=== PATIENT | male | born 1965 | race Two or more races ===

== ENCOUNTER 2025-01-21 14:28 | Outpatient (AMB) | payer MEDICAID, SELFPAY ==
--- NOTE | 2025-01-21 14:36 | ACNOTE_ITS ---
Vital Signs 01/21/25 14:37 Height 1.68 m Height Method Stated Weight 62.142 kg Weight Measurement Method Standing Scale BMI 22.0 BP 114/70 Blood Pressure Source Automatic Cuff Blood Pressure Location Left Upper Arm Position Sitting Respiration 16 Pulse 66 Pulse Source Monitor Temp 98.2 F Temp Source Temporal Artery Scan Pulse Oximetry (%) 98 Oxygen Delivery Method Room Air Allergies/Meds Allergies & Medications Allergies No Known Allergies Allergy (Verified 01/21/25 14:38) Medication Reconciliation blood-glucose meter (Accu-Chek Guide Glucose Meter) #1 ea 01/25/23 [Rx Confirmed 01/21/25] hydrocortisone 1 % topical cream (Cortisone (hydrocortisone)) 1 applic topical TID PRN rash #28.4 grams 05/09/23 [Rx Confirmed 01/21/25] atorvastatin 20 mg tablet 20 mg PO QHS #30 tabs 01/21/25 [Rx] benzonatate 100 mg capsule 100 mg PO BID PRN cough #30 caps 01/21/25 [Rx] lancets 17 gauge #100 ea 01/21/25 [Rx] losartan 25 mg tablet 25 mg PO QDAY #30 tabs 01/21/25 [Rx] metformin 500 mg tablet 500 mg PO BIDWMEAL #60 tabs 01/21/25 [Rx] pantoprazole 40 mg tablet,delayed release (Protonix) 40 mg PO QDAY #30 tabs 01/21/25 [Rx] MA Intake Visit Data Collection New Patient or Established: Established Patient (seen at [facility] within 3 years) Seen by Clinical Staff ONLY (RN/MA): No Pain Present Currently: No Pain scale:: 0 Pain Scale Used: Foss-Gardner/Numerical Wind Energy Technician Required: Yes PCP or OBGYN visit in last 3 months: No Hx Now: No Do You Feel Safe at Home: Yes Authorities Contacted: N/A Smoking Status Smoking Status: Never smoker Immunization / Flu Flu Vaccine in the Last 12 Months: No Flu Vaccine Exclusion Criteria: No Exclusion Criteria Past Medical History Past Medical History NEUROLOGIC: Negative Neurological Disorders or Seizures CARDIAC: Negative Cardiac Disorders, Atrial Fibrillation or Congestive Heart Failure RESPIRATORY: Negative Chronic Obstructive Pulmonary Disease (COPD) GASTROINTESTINAL: Negative Gastrointestinal Disorders or Hepatitis GENITOURINARY: Negative Renal Disease ENDOCRINE: Negative Diabetes Mellitus Type 1 or Diabetes Mellitus Type 2 OTHER HISTORY: Negative Blood Transfusions, Anesthesia Reactions, MRSA, VRSA, Vancomycin-Resistant Enterococci, Chicken Pox, Clostridium Difficile or Cancer Family History FAMILY HISTORY: Negative Family Psychiatric Problems, Family Respiratory Disorders, Family Cardiac Disorders, Family Gastrointestinal Problems or Family Cancer Surgical History SURGICAL: Negative Cardiac Surgery, Endocrine Surgery, Ear Surgery, Abdominal Surgery, Joint Replacement or Neurologic Surgery Social History SMOKING STATUS: Smoking status: Never smoker SECOND HAND EXPOSURE: second hand exposure: No ALCOHOL: Alcohol Intake: Never HOUSING: Housing: House LIVES WITH: Lives With: Alone Patient Portal Questionaires PHQ-9 PHQ-2 Over the last 2 weeks, how often have you been bothered by any of the following problems? 1. Little interest or pleasure in doing things: not at all Social History Living Situation History Housing: House Tobacco History Smoking Status: Never smoker Second Hand Smoke Exposure: No Alcohol History Alcohol Intake: Never Domestic Abuse History Do You Feel Safe at Home: Yes Review of Systems Report any current symptoms Only answer those that you have currently: Past Medical History Past Medical History Have you ever been diagnosed with any of the following: Neurological Problems Seizures: No Cardiology Problems Atrial Fibrillation: No Congestive Heart Failure: No Respiratory Problems Chronic Obstructive Pulmonary Disease (COPD): No Stomache/Intestinal Problems Hepatitis: No Genital/Urinary Problems Renal Disease: No Endocrine Problems Diabetes Mellitus Type 1: No Diabetes Mellitus Type 2: No Other Problems Blood Transfusions: No Anesthesia Reactions: No MRSA: No VRSA: No Vancomycin-Resistant Enterococci: No Chicken Pox: No Clostridium Difficile: No Cancer: No History of Present Illness HPI Narrative 59-year-old male with past medical history of DM2, esophageal stricture s/p dilation, H. pylori, and GERD who was seen in the [facility] today with complaints of persistent cough after recent upper respiratory tract infection. Patient has not been seen in our clinic since April of last year. He stated he has been feeling well without any complaints except for his recent upper respiratory tract infection which he felt unwell with chills, sweats, cough, and fevers. He mentioned that he ate that he does not know if he had any sick contacts during work. He mentioned that he went to a clinic and got some antibiotics which helped improve his symptoms, but did not improve his cough. He denied any shortness of breath, weight loss, blood in the sputum, or night sweats. Patient also mentioned that he has been having some urination issues in which he has some hesitancy as well as increase urge to urinate, but denies any dysuria. Patient stated that his sugars have been in the 120s in the morning, and that he recently ran out of his metformin around 1 month ago. Patient was also noticed to have significant hearing loss in both ears and he was also noticed to have a systolic ejection murmur. Patient's last labs were also done last year therefore we will order new labs for patient. Given this we will order labs for the patient as well as an echocardiogram to assess systolic ejection murmur as well as a referral to an garnett feeder. Patient was also advi sed to keep the log of his sugars in the morning every day until he comes back to the [facility] next week. Review of Systems Review of Systems Narrative Review of Systems: Constitutional: Denies sweats, Denies weight loss/gain, Denies fever, Admits chills. HEENT: Admits hearing loss, Denies ear pain, Denies postnasal drip, Denies double vision, Denies blurry vision. Respiratory: Denies shortness of breath, Admits cough, Denies wheezing. Cardiovascular: Denies chest pain, Denies palpitations, Denies sudden loss of consciousness. GI: Denies blood in stool, Denies constipation, Denies abdominal pain, Denies difficulty swallowing, Denies nausea or vomit. : Denies urinary incontinence, Denies pain while urinating, Admits increased urinary hesitancy and urgency. MSK: Denies joint pain, Denies joint swelling, Denies numbness. Skin: Denies rash, Denies itching, Denies easy bruising. Neuro: Denies headaches, Denies dizziness, Denies seizures. Objective/Exam General General Appearance: alert, in no apparent distress and cooperative Head Head exam: atraumatic, normocephalic and normal inspection Eye Eye exam: Present normal appearance, PERRL and EOMI ENT ENT exam: Present normal exam, normal oropharynx, mucous membranes moist and other (impaired hearing JEOVANNY ) Neck Neck exam: Present normal inspection and full ROM Card Cardiovascular exam: Present regular rate, normal rhythm and systolic murmur Abdominal Abdominal exam: Present soft and normal bowel sounds Extremities Extremities exam: Present normal inspection and full ROM Neuro Neurological exam: Present alert, oriented X3 and CN II-XII intact Psych Psychiatric exam: Present normal affect and normal mood Assessment & Plan Diagnosis / Problem List (1) Diabetes mellitus, type II: Status: Acute Qualifiers: Diabetes mellitus group home insulin use: without mechanical engineering technologist use Diabetes mellitus complication status: with hyperglycemia Qualified Code(s): E11.65 - Type 2 diabetes mellitus with hyperglycemia Assessment & Plan: Patient's last A1c was 6.3% on 01/2024 Patient states that her blood sugars have been in the 120s Patient ran out of metformin around 1 month ago Plan: Refilled patient's metformin Start patient on losartan low-dose As patient to get a log of his blood sugars in the morning for next visit Order A1c, microalbumin/creatinine ratio, TSH, and lipid panel (2) Upper respiratory infection: Status: Acute Qualifiers: URI type: unspecified URI Qualified Code(s): J06.9 - Acute upper respiratory infection, unspecified Assessment & Plan: Patient stated that he had a cough along with fevers, chills, and sweats around 3 weeks ago and he still has a persistent cough He stated he took some antibiotics prescribed to him by another clinic Plan: Will get CBC Will order Tesayaanon Nicole (3) Other difficulties with micturition: Status: Acute Assessment & Plan: Patient has been having some hesitancy as well as increased urinary urgency Plan: Will order PSA before starting any treatment for now (4) Murmur, cardiac: Status: Acute Assessment & Plan: Patient was noticed to have a systolic ejection murmur Patient has no echocardiogram on file Plan: Ordered echo for possible aortic stenosis (5) Hearing loss: Status: Acute Qualifiers: Hearing loss type: unspecified Laterality: bilateral Qualified Code(s): H91.93 - Unspecified hearing loss, bilateral Assessment & Plan: Patient has been having impaired hearing in bilateral ears Plan: Will refer patient to garnett feeder Orders: Orders CA echo doppler complete 1 Month R01.1 - Cardiac murmur, unspecified Referrals Audiology H91.90 - Unspecified hearing loss, unspecified ear Office Procedures [facility] Level of Care Nursing/Assessment Patient Status: Established Patient Nursing Assessment/Reassessment: Medication Reconciliation, Update PMH in EMR and Vital Signs Coordination of Care: Complex Care and Chronic Disease 1-5, Consent,records obtained, informed consent, Lab and Imaging orders and Staff clarify orders Established Patient Charge Established Patient Point Assignment: 85 Established Patient Point Charge: Level 3 (80-115)
[2025-01-21 14:37] VITALS: BP 114/70; PULSE 66; RESP 16; TEMP 36.8; O2SAT 98; BMI 22.0
== END 2025-01-21 15:12 | disposition home or self-care (01) ==
LOC: HODAHC 14:28
PROVIDERS: Supervising Provider Internal Medicine
DX: J06.9 Acute upper respiratory infection, unspecified (principal); E11.65 Type 2 diabetes mellitus with hyperglycemia; H91.93 Unspecified hearing loss, bilateral; R39.198 Other difficulties with micturition; R01.1 Cardiac murmur, unspecified; Z79.84 Long term (current) use of oral hypoglycemic drugs
CPT/HCPCS: 99213; G0463

== ENCOUNTER 2025-01-28 13:53 | Outpatient (AMB) | payer MEDICAID, SELFPAY ==
--- NOTE | 2025-01-28 14:49 | PD.RESCLINIC ---
Vital Signs 01/28/25 14:50 Height 1.68 m Height Method Stated Weight 62.142 kg Weight Measurement Method Standing Scale BMI 22.0 BP 106/69 Blood Pressure Source Automatic Cuff Blood Pressure Location Left Upper Arm Position Sitting Respiration 16 Pulse 65 Pulse Source Monitor Temp 97.3 F Temp Source Temporal Artery Scan Pulse Oximetry (%) 98 Oxygen Delivery Method Room Air Allergies/Meds Allergies & Medications Allergies No Known Allergies Allergy (Verified 01/29/25 11:11) Medication Reconciliation blood-glucose meter (Accu-Chek Guide Glucose Meter) #1 ea 01/25/23 [Rx Confirmed 01/29/25] hydrocortisone 1 % topical cream (Cortisone (hydrocortisone)) 1 applic topical TID PRN rash #28.4 grams 05/09/23 [Rx Confirmed 01/29/25] atorvastatin 20 mg tablet 20 mg PO QHS #30 tabs 01/21/25 [Rx Confirmed 01/29/25] benzonatate 100 mg capsule 100 mg PO BID PRN cough #30 caps 01/21/25 [Rx Confirmed 01/29/25] lancets 17 gauge #100 ea 01/21/25 [Rx Confirmed 01/29/25] losartan 25 mg tablet 25 mg PO QDAY #30 tabs 01/21/25 [Rx Confirmed 01/29/25] metformin 500 mg tablet 500 mg PO BIDWMEAL #60 tabs 01/21/25 [Rx Confirmed 01/29/25] pantoprazole 40 mg tablet,delayed release (Protonix) 40 mg PO QDAY #30 tabs 01/21/25 [Rx Confirmed 01/29/25] blood sugar diagnostic (Accu-Chek Guide test strips) #50 ea 01/28/25 [Rx Confirmed 01/29/25] blood-glucose meter (Accu-Chek Guide Glucose Meter) #1 ea 01/28/25 [Rx Confirmed 01/29/25] tamsulosin 0.4 mg capsule (Flomax) 0.4 mg PO QDAY 1 month #30 caps 01/28/25 [Rx Confirmed 01/29/25] MA Intake Visit Data Collection New Patient or Established: Established Patient (seen at [facility] within 3 years) Seen by Clinical Staff ONLY (RN/MA): No Pain Present Currently: No Pain scale:: 0 Pain Scale Used: Soni/Numerical Mechanical Supervisor Required: Yes PCP or OBGYN visit in last 3 months: Yes Hx Now: No Do You Feel Safe at Home: Yes Authorities Contacted: N/A Smoking Status Smoking Status: Never smoker Immunization / Flu Flu Vaccine in the Last 12 Months: No Flu Vaccine Exclusion Criteria: No Exclusion Criteria Past Medical History Past Medical History NEUROLOGIC: Negative Neurological Disorders or Seizures CARDIAC: Negative Cardiac Disorders, Atrial Fibrillation or Congestive Heart Failure RESPIRATORY: Negative Chronic Obstructive Pulmonary Disease (COPD) GASTROINTESTINAL: Negative Gastrointestinal Disorders or Hepatitis GENITOURINARY: Negative Renal Disease ENDOCRINE: Negative Diabetes Mellitus Type 1 or Diabetes Mellitus Type 2 OTHER HISTORY: Negative Blood Transfusions, Anesthesia Reactions, MRSA, VRSA, Vancomycin-Resistant Enterococci, Chicken Pox, Clostridium Difficile or Cancer Family History FAMILY HISTORY: Negative Family Psychiatric Problems, Family Respiratory Disorders, Family Cardiac Disorders, Family Gastrointestinal Problems or Family Cancer Surgical History SURGICAL: Negative Cardiac Surgery, Endocrine Surgery, Ear Surgery, Abdominal Surgery, Joint Replacement or Neurologic Surgery Social History SMOKING STATUS: Smoking status: Never smoker SECOND HAND EXPOSURE: second hand exposure: No ALCOHOL: Alcohol Intake: Never HOUSING: Housing: House LIVES WITH: Lives With: Alone Patient Portal Questionaires PHQ-9 PHQ-2 Over the last 2 weeks, how often have you been bothered by any of the following problems? 1. Little interest or pleasure in doing things: not at all Social History Living Situation History Housing: House Tobacco History Smoking Status: Never smoker Second Hand Smoke Exposure: No Alcohol History Alcohol Intake: Never Domestic Abuse History Do You Feel Safe at Home: Yes Review of Systems Report any current symptoms Only answer those that you have currently: Past Medical History Past Medical History Have you ever been diagnosed with any of the following: Neurological Problems Seizures: No Cardiology Problems Atrial Fibrillation: No Congestive Heart Failure: No Respiratory Problems Chronic Obstructive Pulmonary Disease (COPD): No Stomache/Intestinal Problems Hepatitis: No Genital/Urinary Problems Renal Disease: No Endocrine Problems Diabetes Mellitus Type 1: No Diabetes Mellitus Type 2: No Other Problems Blood Transfusions: No Anesthesia Reactions: No MRSA: No VRSA: No Vancomycin-Resistant Enterococci: No Chicken Pox: No Clostridium Difficile: No Cancer: No History of Present Illness HPI Narrative 59-year-old male with past medical history of DM2, esophageal stricture s/p dilation, H. pylori, and GERD who was seen in the [facility] today for follow-up on his persistent cough as well as lab results. Patient stated that he started using the medications that were prescribed which were Tessalon Perles and that his cough has significantly improved, but is still there sometimes. He also mentioned that his micturition issues have improved slightly, but still having some urgency during the night. He states that his glucose monitoring machine is malfunctioning therefore we will order a new one as well as some test strips. Will also start patient on Flomax. Still not seen the warehouse traffic supervisor or had his echo taken. Discussed the lab results with the patient. Review of Systems Review of Systems Narrative Review of Systems: Constitutional: Denies sweats, Denies weight loss/gain, Denies fever, Denies chills. HEENT: Admits hearing loss, Denies ear pain, Denies postnasal drip, Denies double vision, Denies blurry vision. Respiratory: Denies shortness of breath, Admits cough, Denies wheezing. Cardiovascular: Denies chest pain, Denies palpitations, Denies sudden loss of consciousness. GI: Denies blood in stool, Denies constipation, Denies abdominal pain, Denies difficulty swallowing, Denies nausea or vomit. : Denies urinary incontinence, Denies pain while urinating, Admits increased urinary urgency. MSK: Denies joint pain, Denies joint swelling, Denies numbness. Skin: Denies rash, Denies itching, Denies easy bruising. Neuro: Denies headaches, Denies dizziness, Denies seizures. Objective/Exam General General Appearance: alert, in no apparent distress and cooperative Head Head exam: atraumatic, normocephalic and normal inspection Eye Eye exam: Present normal appearance, PERRL and EOMI ENT ENT exam: Present normal exam, normal oropharynx, mucous membranes moist and other (impaired hearing JEOVANNY ) Neck Neck exam: Present normal inspection and full ROM Card Cardiovascular exam: Present regular rate, normal rhythm and systolic murmur Abdominal Abdominal exam: Present soft and normal bowel sounds Extremities Extremities exam: Present normal inspection and full ROM Neuro Neurological exam: Present alert, oriented X3 and CN II-XII intact Psych Psychiatric exam: Present normal affect and normal mood Assessment & Plan Diagnosis / Problem List (1) Diabetes mellitus, type II: Status: Acute Qualifiers: Diabetes mellitus complication status: with hyperglycemia Diabetes mellitus intermission coordinator insulin use: without skilled nursing use Qualified Code(s): E11.65 - Type 2 diabetes mellitus with hyperglycemia Assessment & Plan: Patient's last A1c was 6.3% on 01/2024 Blood sugar fasting was 113, no A1c was done by the lab, but estimated A1c was 5.5% with lab results. Plan: Continue metformin and losartan Ordered blood glucose meter and test strips Follow-up in 3 months with repeat A1c (2) Upper respiratory infection: Status: Acute Qualifiers: URI type: unspecified URI Qualified Code(s): J06.9 - Acute upper respiratory infection, unspecified Assessment & Plan: Patient had no leukocytosis upon CBC and states that his cough is improving with medications. Plan: Will continue to monitor (3) Other difficulties with micturition: Status: Acute Assessment & Plan: Patient has noticed some improvement in his hesitancy and urgency, but still experiencing some urgency PSA was within normal limits Plan: Started the patient on Flomax daily (4) Murmur, cardiac: Status: Acute Assessment & Plan: Patient was noticed to have a systolic ejection murmur Patient has no echocardiogram on file Plan: Still pending echo (5) Hearing loss: Status: Acute Qualifiers: Hearing loss type: unspecified Laterality: bilateral Qualified Code(s): H91.93 - Unspecified hearing loss, bilateral Assessment & Plan: Patient has been having impaired hearing in bilateral ears Plan: Still has not seen warehouse traffic supervisor Office Procedures [facility] Level of Care Nursing/Assessment Patient Status: Established Patient Nursing Assessment/Reassessment: Medication Reconciliation, Update PMH in EMR and Vital Signs Coordination of Care: Complex Care and Chronic Disease 1-5, Consent,records obtained, informed consent, Education Simp Pt/Fam, Results/Orders obtained and Staff clarify orders Established Patient Charge Established Patient Point Assignment: 90 Established Patient Point Charge: EP Level 3 (80-115)
[2025-01-28 14:50] VITALS: BP 106/69; PULSE 65; RESP 16; TEMP 36.3; O2SAT 98; BMI 22.0
== END 2025-01-28 14:55 | disposition home or self-care (01) ==
LOC: HODAHC 13:53
PROVIDERS: Supervising Provider Internal Medicine
DX: R05.9 Cough, unspecified (principal); R39.15 Urgency of urination; Z71.2 Person consulting for explanation of examination or test findings; E11.65 Type 2 diabetes mellitus with hyperglycemia; R01.1 Cardiac murmur, unspecified; H91.93 Unspecified hearing loss, bilateral
CPT/HCPCS: 99213; G0463

== ENCOUNTER 2025-04-15 14:07 | Outpatient (AMB) | payer MEDICAID, SELFPAY ==
[2025-04-15 14:20] VITALS: BP 121/65; PULSE 51; RESP 17; TEMP 36.6; O2SAT 98; BMI 21.9
--- NOTE | 2025-04-15 14:20 | PD.RESCLINIC ---
Vital Signs 04/15/25 14:20 Height 1.68 m Height Method Stated Weight 61.745 kg Weight Measurement Method Standing Scale BMI 21.9 BP 121/65 Blood Pressure Source Automatic Cuff Blood Pressure Location Right Upper Arm Position Sitting Respiration 17 Pulse 51 L Pulse Source Monitor Temp 97.8 F Temp Source Temporal Artery Scan Pulse Oximetry (%) 98 Oxygen Delivery Method Room Air Allergies/Meds Allergies & Medications Allergies No Known Allergies Allergy (Verified 04/15/25 14:22) Medication Reconciliation blood-glucose meter (Accu-Chek Guide Glucose Meter) #1 ea 01/25/23 [Rx Confirmed 04/15/25] hydrocortisone 1 % topical cream (Cortisone (hydrocortisone)) 1 applic topical TID PRN rash #28.4 grams 05/09/23 [Rx Confirmed 04/15/25] benzonatate 100 mg capsule 100 mg PO BID PRN cough #30 caps 01/21/25 [Rx Confirmed 04/15/25] lancets 17 gauge #100 ea 01/21/25 [Rx Confirmed 04/15/25] metformin 500 mg tablet 500 mg PO BIDWMEAL #60 tabs 01/21/25 [Rx Confirmed 04/15/25] pantoprazole 40 mg tablet,delayed release (Protonix) 40 mg PO QDAY #30 tabs 01/21/25 [Rx Confirmed 04/15/25] blood sugar diagnostic (Accu-Chek Guide test strips) #50 ea 01/28/25 [Rx Confirmed 04/15/25] blood-glucose meter (Accu-Chek Guide Glucose Meter) #1 ea 01/28/25 [Rx Confirmed 04/15/25] MA Intake Visit Data Collection New Patient or Established: Established Patient (seen at [facility] within 3 years) Seen by Clinical Staff ONLY (RN/MA): No Pain Present Currently: No Pain scale:: 0 Pain Scale Used: FossAshlee/[employer]ical [employer] Insurance Required: No PCP or OBGYN visit in last 3 months: Yes Date of Last Menstrual Period: 01/28/25 Do You Feel Safe at Home: Yes Authorities Contacted: N/A Smoking Status Smoking Status: Never smoker Immunization / Flu Flu Vaccine in the Last 12 Months: No Flu Vaccine Exclusion Criteria: Already Received Past Medical History Past Medical History NEUROLOGIC: Negative Neurological Disorders or Seizures CARDIAC: Negative Cardiac Disorders, Atrial Fibrillation or Congestive Heart Failure RESPIRATORY: Negative Chronic Obstructive Pulmonary Disease (COPD) GASTROINTESTINAL: Negative Gastrointestinal Disorders or Hepatitis GENITOURINARY: Negative Renal Disease ENDOCRINE: Negative Diabetes Mellitus Type 1 or Diabetes Mellitus Type 2 OTHER HISTORY: Negative Blood Transfusions, Anesthesia Reactions, MRSA, VRSA, Vancomycin-Resistant Enterococci, Chicken Pox, Clostridium Difficile or Cancer Family History FAMILY HISTORY: Negative Family Psychiatric Problems, Family Respiratory Disorders, Family Cardiac Disorders, Family Gastrointestinal Problems or Family Cancer Surgical History SURGICAL: Negative Cardiac Surgery, Endocrine Surgery, Ear Surgery, Abdominal Surgery, Joint Replacement or Neurologic Surgery Social History SMOKING STATUS: Smoking status: Never smoker SECOND HAND EXPOSURE: second hand exposure: No ALCOHOL: Alcohol Intake: Never HOUSING: Housing: House LIVES WITH: Lives With: Alone Patient Portal Questionaires PHQ-9 PHQ-2 Over the last 2 weeks, how often have you been bothered by any of the following problems? 1. Little interest or pleasure in doing things: not at all 2. Feeling down, depressed, or hopeless: not at all Total score: 0 PHQ-9 3. Trouble falling or staying asleep, or sleeping too much: Not at all 4. Feeling tired or having little energy: Not at all 5. Poor appetite or overeating: Not at all 6. Feeling bad about yourself - or that you are a failure or have let yourself or your family down: Not at all 7. Trouble concentrating on things, such as reading the newspaper or watching television: Not at all 8. Moving or speaking so slowly that other people could have noticed? - Or the opposite - being so fidgety or restless that you have been moving around a lot more than usual: not at all 9. Thoughts that you would be better off or of hurting yourself in some way: Not at all Total score: 0 If you checked off any problems, how difficult have these problems made it for you to do your work, take care of things at home, or get along with other people?: not difficult at all Source: Developed by Drs. Aden Webb, Yolanda Herrmann, Sloan Abbott and colleagues, with an educational sheeba from [employer]. Depression screen completed yes Social History Living Situation History Marital Status: Lives With: Family Housing: House Tobacco History Smoking Status: Never smoker Second Hand Smoke Exposure: No Alcohol History Alcohol Intake: Never Domestic Abuse History Do You Feel Safe at Home: Yes Review of Systems Report any current symptoms Only answer those that you have currently: Past Medical History Past Medical History Have you ever been diagnosed with any of the following: Neurological Problems Seizures: No Cardiology Problems Atrial Fibrillation: No Congestive Heart Failure: No Respiratory Problems Chronic Obstructive Pulmonary Disease (COPD): No Stomache/Intestinal Problems Hepatitis: No Genital/Urinary Problems Renal Disease: No Endocrine Problems Diabetes Mellitus Type 1: No Diabetes Mellitus Type 2: No Other Problems Blood Transfusions: No Anesthesia Reactions: No MRSA: No VRSA: No Vancomycin-Resistant Enterococci: No Chicken Pox: No Clostridium Difficile: No Cancer: No History of Present Illness HPI Narrative 59-year-old male with past medical history of DM2, esophageal stricture s/p dilation, H. pylori, and GERD who was seen in the [facility] today for 2 month follow-up. Patient states that he started taking his tamsulosin which caused him to have urine retention and that when he did not use it he could urinate without any issues. Patient also stated that his atorvastatin caused him to feel weakness in his legs and his losartan caused his lungs to feel funny. He states that he has been checking his sugars and have been under controlled, but did not get the A1c done which was ordered on previous visit. At this time patient's blood pressure have been under control therefore will stop his losartan and since his lipid were under control will also stop atorvastatin. Will monitor lipids and BP before starting a new regimen. Patient will also stop tamsulosin. Review of Systems Review of Systems Narrative Review of Systems: Constitutional: Denies sweats, Denies weight loss/gain, Denies fever, Denies chills. HEENT: denies hearing loss, Denies ear pain, Denies postnasal drip, Denies double vision, Denies blurry vision. Respiratory: Denies shortness of breath, denies cough, Denies wheezing. Cardiovascular: Denies chest pain, Denies palpitations, Denies sudden loss of consciousness. GI: Denies blood in stool, Denies constipation, Denies abdominal pain, Denies difficulty swallowing, Denies nausea or vomit. : Denies urinary incontinence, Denies pain while urinating, Admits increased urinary retention. MSK: Denies joint pain, Admits leg weakness, Denies joint swelling, Denies numbness. Skin: Denies rash, Denies itching, Denies easy bruising. Neuro: Denies headaches, Denies dizziness, Denies seizures. Objective/Exam General General Appearance: alert, in no apparent distress and cooperative Head Head exam: atraumatic, normocephalic and normal inspection Eye Eye exam: Present normal appearance, PERRL and EOMI ENT ENT exam: Present normal exam, normal oropharynx, mucous membranes moist and other (impaired hearing JEOVANNY ) Neck Neck exam: Present normal inspection and full ROM Card Cardiovascular exam: Present regular rate, normal rhythm and systolic murmur Abdominal Abdominal exam: Present soft and normal bowel sounds Extremities Extremities exam: Present normal inspection and full ROM Neuro Neurological exam: Present alert, oriented X3 and CN II-XII intact Psych Psychiatric exam: Present normal affect and normal mood Assessment & Plan Diagnosis / Problem List (1) Diabetes mellitus, type II: Status: Acute Qualifiers: Diabetes mellitus intermediate insulin use: without intermediate use Diabetes mellitus complication status: with hyperglycemia Qualified Code(s): E11.65 - Type 2 diabetes mellitus with hyperglycemia Assessment & Plan: Patient's last A1c was 6.3% on 01/2024 still no A1c States BG in the 80-115 Plan: Continue metformin Stop losartan as well as atorvastatin given side effects and patient's preference to stop it Follow-up in 3 months with repeat A1c (2) Other difficulties with micturition: Status: Acute Assessment & Plan: Patient has noticed some improvement in his hesitancy and urgency, but still experiencing some urgency PSA was within normal limits Plan: Stop flomax as patient states caused urine retention and prefers not to take it (3) Murmur, cardiac: Status: Acute Assessment & Plan: Patient was noticed to have a systolic ejection murmur Patient has no echocardiogram on file Plan: Still pending echo, has not scheduled appointment Additional Plan Stop losartan, flomax, losartan get A1c and F/U in 3 months Case disclosed with Attending Dr. Francheska Lee PGY1 Office Procedures [facility] Level of Care Nursing/Assessment Patient Status: Established Patient Nursing Assessment/Reassessment: Medication Reconciliation, Update PMH in EMR and Vital Signs Coordination of Care: Complex Care and Chronic Disease 1-5, Consent,records obtained, informed consent, Education Simp Pt/Fam, Results/Orders obtained and Staff clarify orders Established Patient Charge Established Patient Point Assignment: 90 Established Patient Point Charge: EP Level 3 (32-115)
== END 2025-04-15 15:05 | disposition home or self-care (01) ==
LOC: HODAHC 14:07
PROVIDERS: Supervising Provider Internal Medicine
DX: E11.65 Type 2 diabetes mellitus with hyperglycemia (principal); R33.9 Retention of urine, unspecified; R39.15 Urgency of urination; R01.1 Cardiac murmur, unspecified; Z79.84 Long term (current) use of oral hypoglycemic drugs
CPT/HCPCS: 99213; G0463

== ENCOUNTER 2025-06-13 13:57 | Outpatient (AMB) | payer MEDICAID, SELFPAY ==
[2025-06-13 14:48] VITALS: BP 114/71; PULSE 60; RESP 18; TEMP 36.4; O2SAT 97; BMI 21.2
--- NOTE | 2025-06-13 14:48 | ACNOTE_ITS ---
Vital Signs 06/13/25 14:48 Height 1.68 m Height Method Stated Weight 60.044 kg Weight Measurement Method Standing Scale BMI 21.2 BP 114/71 Blood Pressure Source Automatic Cuff Blood Pressure Location Right Upper Arm Position Sitting Respiration 18 Pulse 60 Pulse Source Monitor Temp 97.6 F Temp Source Temporal Artery Scan Pulse Oximetry (%) 97 Oxygen Delivery Method Room Air Allergies/Meds Allergies & Medications Allergies No Known Allergies Allergy (Verified 06/13/25 14:49) Medication Reconciliation blood-glucose meter (Accu-Chek Guide Glucose Meter) #1 ea 01/25/23 [Rx Confirmed 06/13/25] hydrocortisone 1 % topical cream (Cortisone (hydrocortisone)) 1 applic topical TID PRN rash #28.4 grams 05/09/23 [Rx Confirmed 06/13/25] benzonatate 100 mg capsule 100 mg PO BID PRN cough #30 caps 01/21/25 [Rx Confirmed 06/13/25] lancets 17 gauge #100 ea 01/21/25 [Rx Confirmed 06/13/25] pantoprazole 40 mg tablet,delayed release (Protonix) 40 mg PO QDAY #30 tabs 01/21/25 [Rx Confirmed 06/13/25] blood sugar diagnostic (Accu-Chek Guide test strips) #50 ea 01/28/25 [Rx Confirmed 06/13/25] blood-glucose meter (Accu-Chek Guide Glucose Meter) #1 ea 01/28/25 [Rx Confirmed 06/13/25] metformin 500 mg tablet 500 mg PO BIDWMEAL Pre-daibetes R73.03 #60 tabs 06/13/25 [Rx] MA Intake Visit Data Collection New Patient or Established: Established Patient (seen at [facility] within 3 years) Seen by Clinical Staff ONLY (RN/MA): No Pain Present Currently: No Pain scale:: 0 Pain Scale Used: FossRioGardner/Numerical Personal Care Service Provider Required: No PCP or OBGYN visit in last 3 months: No Do You Feel Safe at Home: Yes Authorities Contacted: N/A Smoking Status Smoking Status: Never smoker Immunization / Flu Flu Vaccine in the Last 12 Months: No Flu Vaccine Exclusion Criteria: No Exclusion Criteria Past Medical History Past Medical History NEUROLOGIC: Negative Neurological Disorders or Seizures CARDIAC: Negative Cardiac Disorders, Atrial Fibrillation or Congestive Heart Failure RESPIRATORY: Negative Chronic Obstructive Pulmonary Disease (COPD) GASTROINTESTINAL: Negative Gastrointestinal Disorders or Hepatitis GENITOURINARY: Negative Renal Disease ENDOCRINE: Negative Diabetes Mellitus Type 1 or Diabetes Mellitus Type 2 OTHER HISTORY: Negative Blood Transfusions, Anesthesia Reactions, MRSA, VRSA, Vancomycin-Resistant Enterococci, Chicken Pox, Clostridium Difficile or Cancer Family History FAMILY HISTORY: Negative Family Psychiatric Problems, Family Respiratory Disorders, Family Cardiac Disorders, Family Gastrointestinal Problems or Family Cancer Surgical History SURGICAL: Negative Cardiac Surgery, Endocrine Surgery, Ear Surgery, Abdominal Surgery, Joint Replacement or Neurologic Surgery Social History SMOKING STATUS: Smoking status: Never smoker SECOND HAND EXPOSURE: second hand exposure: No ALCOHOL: Alcohol Intake: Never HOUSING: Housing: House LIVES WITH: Lives With: Alone Patient Portal Questionaires PHQ-9 PHQ-2 Over the last 2 weeks, how often have you been bothered by any of the following problems? 1. Little interest or pleasure in doing things: not at all PHQ-9 8. Moving or speaking so slowly that other people could have noticed? - Or the opposite - being so fidgety or restless that you have been moving around a lot more than usual: not at all Source: Developed by Drs. Aden Webb, Yolanda Herrmann, Sloan Abbott and colleagues, with an educational sheeba from [employer]. Social History Living Situation History Lives With: Family Housing: House Tobacco History Smoking Status: Never smoker Second Hand Smoke Exposure: No Alcohol History Alcohol Intake: Never Domestic Abuse History Do You Feel Safe at Home: Yes Review of Systems Report any current symptoms Only answer those that you have currently: Past Medical History Past Medical History Have you ever been diagnosed with any of the following: Neurological Problems Seizures: No Cardiology Problems Atrial Fibrillation: No Congestive Heart Failure: No Respiratory Problems Chronic Obstructive Pulmonary Disease (COPD): No Stomache/Intestinal Problems Hepatitis: No Genital/Urinary Problems Renal Disease: No Endocrine Problems Diabetes Mellitus Type 1: No Diabetes Mellitus Type 2: No Other Problems Blood Transfusions: No Anesthesia Reactions: No MRSA: No VRSA: No Vancomycin-Resistant Enterococci: No Chicken Pox: No Clostridium Difficile: No Cancer: No History of Present Illness HPI Narrative Patient is a 59 year old male with a past medical history of diabetes Mellitus Type 2, non insulin depedent, history of GERD, history of esophageal stricture s/p dialtion, and history of H.pyloir. 06/13/2025: Patient is here for A1c follow up. Patient previously on Tamsulosin, which was discontinued on previous office visit as he stated it was causing urinary retention after starting medication. Atorvastatin discontinued as he complained of weakness with this medication. Losartan discontinued as he felt it was effecting his lungs. Patient continues to take his Metformin. Patient denied any side effects secondary to medication, such as diarrhea. Follow up A1c 6.0 % (04/15/2025). Patient advised to resume a statin as generalized weakness is not a common side effect and advised to switch over to Lisinopril as patient has diabetes and increased risk of CKD and CAD. Patient continues to refuse Review of Systems Review of Systems Narrative Review of Systems: General appearance: NO weight change, NO fatigue, NO weakness, NO fever, NO chills, NO night sweats, No cough Skin: NO rash, NO itching, NO sores, NO moles HEENT: NO Trauma, NO nausea, NO vomiting, NO visual changes, NO blurry vision, NO double vision, NO tinnitus, NO vertigo, NO ear discharge, NO rhinorrhea, NO stuffiness, NO sneezing, NO allergy, NO epistaxis. NO Hoarseness, NO sore throat, NO swollen neck. Cardiac: NO Palpitations, NO dyspnea on exertion, NO orthopnea, NO paroxysmal nocturnal dyspnea, NO edema Respiratory: NO Shortness of Breath, NO Wheezing, NO Cough, NO Sputum, NO hemoptysis GI:NO appetite, NO nausea, NO vomiting, NO dysphagia, NO changes in bowel frequency, NO stool color, NO diarrhea, NO constipation, NO hemetemesis, NO hemorrhoids, NO melena, NO hematechezia, NO abdominal pain, NO jaundice Renal: NO frequency, NO hesitancy, NO urgency, NO hematuria, NO nocturia, NO incontinence MSK: NO muscle weakness, NO gout, NO arthritis, NO muscle stiffness Neuro: NO headaches, NO tremors, NO weakness, NO paralysis, NO seizures, NO loss of consciousness, NO numbness. Hem: NO anemia, NO easy bruising/bleeding, NO petechiae, NO purpura Endo: NO heat/cold intolerance, NO excessive sweating, NO polyuria, NO polydipsia, NO polyphagia, NO thyroid problems, NO diabetes Pysch: NO mood, NO anxiety, NO depression Objective/Exam Narrative Physical exam: General Appearance: Alert and Orientated x3, well-nourished male who is sitting on exam room in acute distress Thorax/Lungs: Symmetrical with good expansion. Chest and back non-tender. Lungs resonant to percussion. Breath sounds vesicular without crackles, wheezes, or rhonchi Cardiovascular/Peripheral Vascular: No jugular venous distention noted. S1 and S2 heart sounds regular, no murmurs or extra heart sounds auscultated. No peripheral edema noted. Abdomen: Bowel sounds are active. No tenderness to deep or light palpation. Assessment & Plan Diagnosis / Problem List (1) Diabetes mellitus type 2, controlled, without complications: Status: Acute Assessment & Plan: Patient has a past medical history of diabetes mellitus type 2. A1c (04/15/2025) noted to have an A1c 6.0. Continue to take metformin 500 mg PO BID. Plan: Continue Metformin 500 mg PO BID (2) GERD (gastroesophageal reflux disease): Status: Acute Qualifiers: Esophagitis presence: with esophagitis Esophagitis bleeding: unspec ified whether hemorrhage Qualified Code(s): K21.00 - Gastro-esophageal reflux disease with esophagitis, without bleeding Assessment & Plan: Continue oral protonix 40 mg once daily. (3) Murmur, cardiac: Status: Acute Assessment & Plan: Patient was noticed to have a systolic ejection murmur Patient has no echocardiogram on file Plan: Still pending echo, has not scheduled appointment Plan - The patient's plan was discussed with attending Dr. Francheska Nam MD PGY2 Internal Medicine Office Procedures [facility] Level of Care Nursing/Assessment Patient Status: Established Patient Nursing Assessment/Reassessment: Medication Reconciliation, Update PMH in EMR and Vital Signs Coordination of Care: Complex Care and Chronic Disease 1-5, Consent,records obtained, informed consent, Education Simp Pt/Fam and Staff clarify orders Established Patient Charge Established Patient Point Assignment: 85 Established Patient Point Charge: EP Level 3 (80-115)
== END 2025-06-13 15:08 | disposition home or self-care (01) ==
LOC: HODAHC 13:57
PROVIDERS: Supervising Provider Internal Medicine
DX: E11.9 Type 2 diabetes mellitus without complications (principal); R01.1 Cardiac murmur, unspecified; K21.00 Gastro-esophageal reflux disease with esophagitis, without bleeding
CPT/HCPCS: 99213; G0463

== ENCOUNTER 2025-09-19 13:04 | Outpatient (AMB) | payer MEDICAID, SELFPAY ==
[2025-09-19 13:16] VITALS: BP 136/73; PULSE 63; RESP 16; TEMP 36.6; O2SAT 98; BMI 22.1
--- NOTE | 2025-09-19 13:16 | ACNOTE_ITS ---
Vital Signs 09/19/25 13:16 Height 1.68 m Height Method Stated Weight 62.312 kg Weight Measurement Method Standing Scale BMI 22.1 BP 136/73 H Blood Pressure Source Automatic Cuff Blood Pressure Location Right Upper Arm Position Sitting Respiration 16 Pulse 63 Pulse Source Monitor Temp 97.9 F Temp Source Temporal Artery Scan Pulse Oximetry (%) 98 Oxygen Delivery Method Room Air Allergies/Meds Allergies & Medications Allergies No Known Allergies Allergy (Verified 09/19/25 13:18) Medication Reconciliation hydrocortisone 1 % topical cream (Cortisone (hydrocortisone)) 1 applic topical T ID PRN rash #28.4 grams 05/09/23 [Rx Confirmed 09/19/25] lancets 17 gauge #100 ea 01/21/25 [Rx Confirmed 09/19/25] pantoprazole 40 mg tablet,delayed release (Protonix) 40 mg PO QDAY #30 tabs 01/21/25 [Rx Confirmed 09/19/25] metformin 500 mg tablet 500 mg PO BIDWMEAL Pre-daibetes R73.03 #60 tabs 06/13/25 [Rx Confirmed 09/19/25] benzonatate 100 mg capsule 100 mg PO BID PRN cough #30 caps 09/14/25 [Rx Confirmed 09/19/25] blood sugar diagnostic (Accu-Chek Guide test strips) #50 ea 09/14/25 [Rx Confirmed 09/19/25] blood-glucose meter (Accu-Chek Guide Glucose Meter) #1 ea 09/14/25 [Rx Confirmed 09/19/25] blood-glucose meter (Accu-Chek Guide Glucose Meter) #1 ea 09/14/25 [Rx Confirmed 09/19/25] finasteride 1 mg tablet 1 mg PO QDAY Benign Prostatic Hyperplasia 3 months #90 tabs 09/19/25 [Rx] lancets (Accu-Chek Softclix Lancets) #200 ea 09/19/25 [Rx] lidocaine 5 % topical patch 1 patch topical QDAY #15 ea 09/19/25 [Rx] losartan 25 mg tablet 25 mg PO QDAY Hypertesnion I10 1 month #30 tabs 09/19/25 [Rx] miscellaneous medical supply (Blood Pressure Cuff) #1 ea 09/19/25 [Rx] MT Intake Visit Data Collection New Patient or Established: Established Patient (seen at [facility] within 3 years) Seen by Clinical Staff ONLY (RN/MA): No Pain Present Currently: No Pain scale:: 0 Pain Scale Used: Foss-Gardner/Numerical PCP or OBGYN visit in last 3 months: Yes Do You Feel Safe at Home: Yes Authorities Contacted: N/A Smoking Status Smoking Status: Never smoker Immunization / Flu Flu Vaccine in the Last 12 Months: No Flu Vaccine Exclusion Criteria: Refused by Patient Past Medical History Past Medical History NEUROLOGIC: Negative Neurological Disorders or Seizures CARDIAC: Negative Cardiac Disorders, Atrial Fibrillation or Congestive Heart Failure RESPIRATORY: Negative Chronic Obstructive Pulmonary Disease (COPD) GASTROINTESTINAL: Negative Gastrointestinal Disorders or Hepatitis GENITOURINARY: Negative Renal Disease ENDOCRINE: Negative Diabetes Mellitus Type 1 or Diabetes Mellitus Type 2 OTHER HISTORY: Negative Blood Transfusions, Anesthesia Reactions, MRSA, VRSA, Vancomycin-Resistant Enterococci, Chicken Pox, Clostridium Difficile or Cancer Family History FAMILY HISTORY: Negative Family Psychiatric Problems, Family Respiratory Disorders, Family Cardiac Disorders, Family Gastrointestinal Problems or Family Cancer Surgical History SURGICAL: Negative Cardiac Surgery, Endocrine Surgery, Ear Surgery, Abdominal Surgery, Joint Replacement or Neurologic Surgery Social History SMOKING STATUS: Smoking status: Never smoker SECOND HAND EXPOSURE: second hand exposure: No ALCOHOL: Alcohol Intake: Never HOUSING: Housing: House LIVES WITH: Lives With: Alone Patient Portal Questionaires PHQ-9 PHQ-2 Over the last 2 weeks, how often have you been bothered by any of the following problems? 1. Little interest or pleasure in doing things: not at all PHQ-9 8. Moving or speaking so slowly that other people could have noticed? - Or the opposite - being so fidgety or restless that you have been moving around a lot more than usual: not at all Source: Developed by Drs. Aden Webb, Yolanda Herrmann, Sloan Abbott and colleagues, with an educational sheeba from [employer]. Social History Living Situation History Lives With: Family Housing: House Tobacco History Smoking Status: Never smoker Second Hand Smoke Exposure: No Alcohol History Alcohol Intake: Never Domestic Abuse History Do You Feel Safe at Home: Yes Review of Systems Report any current symptoms Only answer those that you have currently: Past Medical History Past Medical History Have you ever been diagnosed with any of the following: Neurological Problems Seizures: No Cardiology Problems Atrial Fibrillation: No Congestive Heart Failure: No Respiratory Problems Chronic Obstructive Pulmonary Disease (COPD): No Stomache/Intestinal Problems Hepatitis: No Genital/Urinary Problems Renal Disease: No Endocrine Problems Diabetes Mellitus Type 1: No Diabetes Mellitus Type 2: No Other Problems Blood Transfusions: No Anesthesia Reactions: No MRSA: No VRSA: No Vancomycin-Resistant Enterococci: No Chicken Pox: No Clostridium Difficile: No Cancer: No History of Present Illness HPI Narrative Patient is a 59 year old male with a past medical history of diabetes Mellitus Type 2, non insulin depedent, history of GERD, history of esophageal stricture s/p dialtion, and history of H.pyloir. 06/13/2025: Patient is here for A1c follow up. Patient previously on Tamsulosin, which was discontinued on previous office visit as he stated it was causing urinary retention after starting medication. Atorvastatin discontinued as he complained of weakness with this medication. Losartan discontinued as he felt it was effecting his lungs. Previous A1c of 6.0 % on 04/15/2025. 09/19/2025: Patient is here for follow up for medication refill. Omar required refill on patient's Losartan 25 mg once daily and Losartan 25 mg once daily. Alberto stated he has not been able to check his blood sugar as he ran out of lancets for about one month. Recommended patient follow up with blood pressure readings at home, blood pressure cuff perscribed, but may not be covered by health insurance. Patient previously started on Flomax for concern for urinary retention but patient could not tolerate medication. Patient started on Finasteride. Follow up with hemoglobin A1c and PSA, possible follow up with prostate US if no symptom improvement. Review of Systems Review of Systems Narrative Review of Systems: General appearance: NO weight change, NO fatigue, NO weakness, NO fever, NO chills, NO night sweats, No cough Skin: NO rash, NO itching, NO sores, NO moles HEENT: NO Trauma, NO nausea, NO vomiting, NO visual changes, NO blurry vision, NO double vision, NO tinnitus, NO vertigo, NO ear discharge, NO rhinorrhea, NO stuffiness, NO sneezing, NO allergy, NO epistaxis. NO Hoarseness, NO sore throat, NO swollen neck. Cardiac: NO Palpitations, NO dyspnea on exertion, NO orthopnea, NO paroxysmal nocturnal dyspnea, NO edema Respiratory: NO Shortness of Breath, NO Wheezing, NO Cough, NO Sputum, NO hemoptysis GI:NO appetite, NO nausea, NO vomiting, NO dysphagia, NO changes in bowel frequency, NO stool color, NO diarrhea, NO constipation, NO hemetemesis, NO hemorrhoids, NO melena, NO hematechezia, NO abdominal pain, NO jaundice Renal: NO frequency, NO hesitancy, NO urgency, NO hematuria, NO nocturia, NO incontinence MSK: NO muscle weakness, NO gout, NO arthritis, NO muscle stiffness Neuro: NO headaches, NO tremors, NO weakness, NO paralysis, NO seizures, NO loss of consciousness, NO numbness. Hem: NO anemia, NO easy bruising/bleeding, NO petechiae, NO purpura Endo: NO heat/cold intolerance, NO excessive sweating, NO polyuria, NO polydipsia, NO polyphagia, NO thyroid problems, YES diabetes Pysch: NO mood, NO anxiety, NO depression Objective/Exam Narrative Physical exam: General Appearance: Alert and Orientated x3, well-nourished male who is sitting on exam room Thorax/Lungs: Symmetrical with good expansion. Chest and back non-tender. Lungs resonant to percussion. Breath sounds vesicular without crackles, wheezes, or rhonchi Cardiovascular/Peripheral Vascular: No jugular venous distention noted. S1 and S2 heart sounds regular, no murmurs or extra heart sounds auscultated. No peripheral edema noted. Abdomen: Bowel sounds are active. No tenderness to deep or light palpation. Assessment & Plan Diagnosis / Problem List (1) Diabetes mellitus type 2, controlled, without complications: Status: Acute Assessment & Plan: Patient has a past medical history of diabetes mellitus type 2. A1c (04/15/2025) noted to have an A1c 6.0. Continue to take metformin 500 mg PO BID. Plan: Continue Metformin 500 mg PO BID Lancets renewed 3 month follow up with A1c (2) GERD (gastroesophageal reflux disease): Status: Acute Qualifiers: Esophagitis presence: with esophagitis Esophagitis bleeding: unspecified whether hemorrhage Qualified Code(s): K21.00 - Gastro-esophageal reflux disease with esophagitis, without bleeding Assessment & Plan: Continue oral protonix 40 mg once daily. (3) Hesitancy: Status: Acute Assessment & Plan: Concern for urinary hesitancy Plan: PSA ordered and urinalysis (4) Murmur, cardiac: Status: Acute Assessment & Plan: Patient was noticed to have a systolic ejection murmur Patient has no echocardiogram on file Plan: Still pending echo, has not scheduled appointment Plan - The patient's plan was discussed with attending Dr. Isra Nam MD PGY2 Internal Medicine Office Procedures [facility] Level of Care Nursing/Assessment Patient Status: Established Patient Nursing Assessment/Reassessment: Medication Reconciliation, Update PMH in EMR and Vital Signs Coordination of Care: Complex Care/Chronic Disease 5 or more, Education Complex Pt/Fam, Consent,records obtained, informed consent, Lab and Imaging orders, Results/Orders obtained and Staff clarify orders Established Patient Charge Established Patient Point Assignment: 120 Established Patient Point Charge: EP Level 4 (120-155)
== END 2025-09-19 13:58 | disposition home or self-care (01) ==
LOC: HODAHC 13:04
PROVIDERS: Supervising Provider Internal Medicine
DX: E11.9 Type 2 diabetes mellitus without complications (principal); Z79.84 Long term (current) use of oral hypoglycemic drugs; K21.9 Gastro-esophageal reflux disease without esophagitis; R01.1 Cardiac murmur, unspecified; Z76.0 Encounter for issue of repeat prescription; R33.9 Retention of urine, unspecified
CPT/HCPCS: 99214; G0463